=== PATIENT | male | born 1955 | race Caucasian/White ===

== ENCOUNTER → 2016-07-13 | Outpatient (CLI) | payer BC ==
[~2016-07-13] MED LIST: ANTIVERT12.5 MG PO; FAMVIR250 MG PO; FINASTERIDE5 MG PO; FLOMAX0.4 MG PO; HYDROCHLOROTHIA25 MG PO; LIPITOR40 MG PO; PRILOSEC20 MG PO; PRINIVIL20 MG PO; VALIUM10 MG PO; ZOFRAN ODT4 MG PO
== END | disposition short-term general hospital (02) ==
LOC: CLUROL 14:57
DX: N40.0 Benign prostatic hyperplasia without lower urinary tract symptoms (principal)